=== PATIENT | female | born 1960 | race Caucasian/White ===

== ENCOUNTER 2016-12-09 10:07 | Outpatient (CLI) ==
[2014-02-15 11:26] VITALS: BMI 39.4
--- NOTE | 2016-12-09 12:08 | MAMMO ---
EXAM: Bilateral digital diagnostic mammogram (2-D and 3-D) History: Right nipple discharge which is clear. Comparison: Bilateral mammogram 08/01/2014 Findings: MLO and CC views of bilateral breasts demonstrate scattered fibroglandular breast parenchy ma. CAD was reviewed by the radiologist. Tomosynthesis was performed. Area of architectural distor tion seen within the upper-outer quadrant of the right breast. No suspicious calcifications. Impression: 1. Indeterminate area of architectural distortion in the upper outer quadrant of the right breast. Recommend further evaluation with ultrasound. 2. No mammographic correlate for the right nipple discharge. Recommend further evaluation with ultr asound. BIRADS 0
--- NOTE | 2016-12-09 16:13 | US ---
EXAM: Right breast ultrasound. History: Right breast nipple discharge and architectural distortion within the right breast. Comparison: Bilateral mammogram 12/09/2016 Technique: Multiple sonographic images through the right breast were obtained. Color duplex Doppler was used to interrogate vascular flow. Findings: No sonographic abnormalities identified to correlate with the clear nipple discharge withi n the right breast. There is an incidental 0.5 cm simple cyst at 10 o'clock. No ultrasound findings to correlate with the architectural distortion. Impression: 1. Indeterminate architectural distortion within the right breast seen on mammography with no sonogra phic correlate. Recommend further evaluation with breast MRI. BIRADS 0
== END 2016-12-09 10:08 | disposition home or self-care (01) ==
LOC: RAD 10:07
PROVIDERS: ATTEND Physician Assistant Medical
DX: Z12.31 Encounter for screening mammogram for malignant neoplasm of breast (principal)

== ENCOUNTER 2018-06-06 11:13 | Outpatient (CLI) ==
[2014-02-15 11:26] VITALS: BMI 39.4
== END 2018-06-06 11:14 | disposition home or self-care (01) ==
LOC: RAD 11:13
PROVIDERS: ATTEND Physician Assistant
DX: Z12.31 Encounter for screening mammogram for malignant neoplasm of breast (principal)

== ENCOUNTER 2018-06-29 08:58 | Outpatient (CLI) ==
[2014-02-15 11:26] VITALS: BMI 39.4
--- NOTE | 2018-06-29 09:28 | MAMMO ---
EXAM: Right digital diagnostic mammogram (2-D and 3-D) History: Right breast architectural distortion. Comparison: Bilateral mammogram 06/06/2018 Findings: Right breast density is scattered. Additional spot compression views of the right breast confirm the upper-outer quadrant architectural distortion. No suspicious microcalcifications. Impression: Indeterminate architectural distortion within the upper-outer quadrant of the right [address]. Recommend further evaluation with right breast ultrasound. BIRADS 0, incomplete. Further evaluation needed.
--- NOTE | 2018-06-29 09:47 | US ---
EXAM: Right breast ultrasound. History: Right breast architectural distortion. Comparison: Right diagnostic mammogram 06/29/2018 Technique: Multiple sonographic images through the right breast were obtained. Color duplex Doppler was used to interrogate vascular flow. Findings: At 10 o'clock 13 cm from nipple there is a 0.7 cm x 0.4 cm x 0.7 cm mass with irregular margins and p osterior acoustic shadowing. This correlates with mammography Impression: 10 o'clock right breast mass is suspicious for malignancy. Recommend further evaluation with ultrasound guided breast biopsy BIRADS 4, suspicious abnormality
== END 2018-06-29 08:59 | disposition home or self-care (01) ==
LOC: RAD 08:58
PROVIDERS: ATTEND Nurse Practitioner Family
DX: R92.8 Other abnormal and inconclusive findings on diagnostic imaging of breast (principal)

== ENCOUNTER 2018-12-13 11:18 | Observation (INO) ==
[2018-12-13] MEDS ORDERED: SODIUM CHLORIDE 1,000 ML IV STA (15:29)
[2018-12-13] MEDS ORDERED: ZOFRAN 4 MG/2 ML IVP STA ×2 (15:29→19:33)
--- NOTE | 2018-12-13 15:29 | ED.PDOC ---
General ED Provider: Dr. YOLANDA DOTSON Chief Complaint: Nausea/Vomiting Stated Complaint: NAUSEA, VOMITING AND DIARRHEA ONSET 2-3 WEEKS HAVING DRY HEAVES Time Seen by Physician: 15:28 Mode of Arrival: Walk-In Information Source: Patient Primary Care Provider: THOMAS CARR Referred to ED by: PCP Does patient meet sepsis criteria?: No If yes, has appropriate treatment been initiated?: No System Inflammatory Response Syndrome: Not Applicable Sepsis Protocol: For patient's 13 years and over: Temp is 96.8 and below OR 101 and greater Pulse >90 BPM Resp >20/minute Acutely Altered Mental Status Are patient's symptoms suggestive of a new infection, such as: -Pneumonia -Skin, Soft Tissue -Endocarditis -UTI -Bone, Joint Infection -Implantable Device -Acute Abdominal Infection -Wound Infection -Meningitis -Blood Stream Catheter Infection -Unknown [facility] Social History (Updated 12/13/18 @ 14:39 by MARCE MONTOYA RN) Do you feel safe at home: Yes Smoking and tobacco status: Former smoker How long ago did patient quit smokin Alcohol intake: never Substance use type: does not use Course Course Vital Signs: Temp Pulse Resp BP Pulse Ox 12/13/18 14:49 77 20 151/87 H 96 12/13/18 11:19 98.4 F 86 18 163/108 H 96 Discharge Plan Discharge Prescriptions: No Action topiramate [Topamax] 100 MG tablet 50 mg PO BID RF: 0 lisinopril [Zestril] 20 MG tablet 40 mg PO QAM RF: 0 diazepam 5 MG tablet 10 mg PO TID RF: 0 levothyroxine [Synthroid] 137 mcg Tablet 137 mcg PO DAILY RF: 0 calcium carbonate-vitamin D3 [Calcium 500 + D (D3)] 500 mg(1,250mg) -125 unit Tablet 1 tab DAILY RF: 0 Cardizem LA 120 mg Tablet Extended Release 24 Hr 120 mg PO DAILY RF: 0 Latuda 40 mg Tablet 40 mg PO DAILY RF: 0 sodium bicarbonate 650 mg Tablet 1,300 mg PO TID RF: 0 ondansetron HCl [Zofran] 8 mg Tablet 8 mg PO Q8H PRN (Reason: Nausea) RF: 0 ED Provider: YOLANDA DOTSON Condition: Stable
[2018-12-13] MEDS ORDERED: SODIUM CHLORIDE 1,000 ML IV ONE (17:03)
--- NOTE | 2018-12-13 17:52 | CT ---
EXAM: CT scan of the abdomen and pelvis without contrast HISTORY: Nausea vomiting diarrhea for 3 weeks TECHNIQUE: Helical imaging of the abdomen and pelvis was performed without contrast. 3 mm thin axia l images and coronal and sagittal reconstructions were provided for addition. Comparison 01/31/2018. FINDINGS: The patient has had previous cholecystectomy. The pancreas, adrenal glands and kidneys ap pear normal. The proximal ureters are normal size. The small and large bowel loops are normal calib er. There is no free air. The helical images obtained through the pelvis demonstrate a normal appearance of the rectum, urinary bladder. There has been previous hysterectomy. Diverticula are seen within the sigmoid colon witho ut acute inflammation. Lung bases are clear. No lytic or blastic lesions are seen within the osseou s structures. IMPRESSION: There is no bowel obstruction or acute inflammatory change seen within the abdomen and p willie. There is no ureteral obstruction. Diverticular disease of the sigmoid colon without acute inflammation. Previous cholecystectomy and previous hysterectomy.
[2018-12-13] MEDS ORDERED: PHENERGAN 25 MG/ML VIAL IM STA (18:12)
[2018-12-13] MEDS ORDERED: PEPCID IVP STA (19:33)
[2018-12-13] MEDS ORDERED: PHENERGAN 25 MG/ML VIAL 25 MG in SODIUM CHLORIDE 100 ML IV PRN (19:47)
--- NOTE | 2018-12-13 20:30 | DI ---
Exam: Two-view chest x-ray. Date: 12/13/2018. Comparison: 01/31/2018. HISTORY: Nausea and vomiting. FINDINGS: No acute osseous abnormalities are seen. The lungs are clear with calcified granulomas. Cardiac silhouette and pulmonary vasculature are normal. Impression: No acute intrathoracic findings. Old granulomatous disease.
[2018-12-13 21:25] VITALS: BMI 45.4
[2018-12-14] MEDS: LOVENOX SUBCUT SCH ×2 (01:18→09:18)
[2018-12-14] MEDS: SODIUM BICARBONATE PO SCH ×3 (01:19→15:11)
[2018-12-14] MEDS: TOPAMAX PO SCH ×2 (01:19→09:17)
[2018-12-14] MEDS: VALIUM PO SCH ×2 (01:19→09:18)
[2018-12-14] MEDS: ZOFRAN 4 MG/2 ML IVP PRN ×2 (01:58→08:27)
[2018-12-14] MEDS ORDERED: SYNTHROID PO SCH ×2 (07:30)
[2018-12-14] MEDS ORDERED: ZESTRIL PO SCH ×2 (09:00)
[2018-12-14] MEDS ORDERED: CARDIZEM CD PO SCH (09:00)
[2018-12-14] MEDS ORDERED: LURASIDONE 40 MG PO SCH ×2 (09:00→17:00)
[2018-12-14] MEDS ORDERED: PHENERGAN 25 MG/ML VIAL ONE (12:35)
[2018-12-14] MEDS ORDERED: SODIUM CHLORIDE 100 ML IV ONE (12:38)
--- NOTE | 2018-12-14 13:57 | DS ---
DATE OF SERVICE: 12/14/18 FINAL DIAGNOSIS: 1. Acute gastroenteritis 2. Chronic kidney disease 3. Nonalcoholic steatohepatitis 4. Morbid obesity 5. Depression 6. Hypothyroidism 7. Hypertension DISCHARGE INSTRUCTIONS: Discharge the patient home. The patient is to see primary care Emelyn Jennings in a couple of days. The appointment is going to be made by [employer]. An appointment is scheduled for December 15, 2018 at 8:30am with Emelyn Jennings at [facility] located on [address] MEDICATIONS AT DISCHARGE: Topamax Diazepam Lisinopril Diltazem Calcium carbonate Levothyroxine Latuda Sodium Bicarb DIET INSTRUCTIONS: Clear liquid and advance as tolerated. Avoid milk, milk products ACTIVITY: Gradually resume as tolerated SMOKING: Former Smoker DISEASE SPECIFIC EDUCATION: Appointments Diet Gastroenteritis HOSPITAL COURSE: 57 year old white female was kept in the emergency room. At that time she had come with nausea, vomiting and diarrhea. The patient did not have much diarrhea or vomiting while she was in the emergency room for several hours. She persisted to have nausea so she was hospitalized. The patient did not have any dry heaves. She was not throwing up at all. She was extremely comfortable, talking normally. Her oral intake was not that great but she had a lot of fluid intake. The patient entire physical examination was negative. A CT scan of the abdomen was negative. Chest x-ray was normal. Her creatinine was 1.5 which has been steady like that with BUN of 12, Potassium 3.6. Vitals were stable with temperature of 97.7 and pulse 50, respiratory rate 18, blood pressure 128/70 and pulse ox 97%. The patient was discharged home to be followed as an outpatient. The patient says that usually Zofran has stopped working, wants Phenergan for nausea. Overall condition is stable. In fact the patient's diarrhea colitis part had already resolved by the time she came to the emergency room. The patient is strongly advised to avoid nonsteroidal anti-inflammatory. CONDITION: Stable. TIME SPENT: More than 60 minutes. LENORA
--- NOTE | 2018-12-14 14:03 | PN ---
The patient's coding 24 hour admission History and Physical and Discharge Summary for this MTDD
[2018-12-14 14:52] VITALS: BP 118/68; TEMP 98
--- NOTE | 2018-12-15 09:16 | HP ---
DATE OF SERVICE: 12/13/18 HISTORY OF PRESENT ILLNESS: 57-year-old white female seen in the emergency room by ER attending with history of nausea and vomiting for a couple of weeks. The patient was kept in the emergency room for several hours where she had continuous nausea but no vomiting. CT scan of the abdomen and chest x-ray were all negative. She continued to have nausea in spite of getting multiple doses of Zofran which was given to the patient at that time. PAST MEDICAL HISTORY: Major depression Hypertension Morbid obesity Hypothyroidism Chronic kidney disease MITCHELL (nonalcoholic steatosis hepatitis) REVIEW OF SYSTEMS: CONSTITUTIONAL: Fatigue. No weakness. No night sweats. No malaise, lethargy. No fever or chills. HEENT: Eyes: No visual changes. No eye pain. No eye discharge. ENT: No runny nose. No epistaxis. No sinus pain. No sore throat. No odynophagia. No ear pain. No congestion. RESPIRATORY: No cough, no congestion. No hemoptysis. No shortness of breath. CARDIOVASCULAR: No angina symptoms. No CHF symptoms. No atypical chest pain for CAD. No palpitations. No PND. No orthopnea. GASTROINTESTINAL: Continuous nausea off and on. Vomiting has subsided for the past 24 hours. Diarrhea has subsided for 24 hours. No abdominal pain. No constipation. No hematemesis. No hematochezia. GENITOURINARY: No urgency. No frequency. No dysuria. No hematuria. No obstructive symptoms. No discharge. No pain. No significant abnormal bleeding. MUSCULOSKELETAL: No musculoskeletal pain. No joint swelling. No arthritis. NEUROLOGICAL: No headache. No neck pain. No syncope. No seizures. No dizziness. PSYCHIATRIC: Not anxious. No depression. No suicidal thoughts. No homicidal thoughts. SKIN: No rash. No lesions. No wounds. ENDOCRINE: No unexplained weight loss. No weight gain. HEMATOLOGIC/LYMPHATIC: No anemia. No purpura. No petechiae. No prolonged or excessive bleeding. No palpable lymph nodes. PERSONAL/FAMILY/SOCIAL HISTORY: The patient is smoker, lives with . She does all activities of daily living. She is disabled from depression. She is morbidly obese with BMI of 45. MEDICATIONS: Topamax 50 mg p.o. b.i.d. Diazepam 10 mg p.o. t.i.d. Zestril 40 mg p.o. q.a.m. Calcium Carbonate - Vitamin D3 one tablet daily Latuda 40 mg p.o. daily Synthroid 137 mcg p.o. daily Diltiazem (Cardizem LA) 120 mg p.o. daily Sodium Bicarbonate 1,300 mg p.o. t.i.d. Ondansetron (Zofran) 8 mg p.o. q.8h p.r.n. ALLERGIES: AMOXICILLIN TRIHYDRATE, POTASSIUM CLAVULANATE (FROM AUGMENTIN), OMEPRAZOLE (FROM PRILOSEC), MORPHINE PHYSICAL EXAMINATION: VITAL SIGNS: Temperature 98.4, pulse 86, respiratory rate 18, blood pressure 150/87. HEENT: Head normocephalic, atraumatic. Eyes: Extraocular muscles are intact. Pupils are equal, round and reactive to light and accommodation. Ears: No lesions. Nose appeared normal. Throat: No exudate or erythema. NECK: Supple. No JVD, no carotid bruit. No lymphadenopathy or thyromegaly. LUNGS: Decreased breath sounds but clear to auscultation. Percussion note normal. Chest symmetrical. HEART: S1, S2, no S3. No murmur. No cyanosis or clubbing. No ascites. Pulses: Dorsalis pedis and posterior tibial pulses +1 to +2 bilaterally. ABDOMEN: Protuberant. Soft. Nontender. Bowel sounds active. No CVA tenderness. No mass felt. EXTREMITIES: No edema. Full range of motion of all extremities, equal. NEUROLOGIC: No focal deficit. Cranial nerves II through XII are grossly intact. No headache, no double vision or headache. SKIN: Not dry. Intact. Turgor - normal. LYMPHATIC: No palpable lymph nodes/no lymphedema. MUSCULOSKELETAL: Normal joints with no swelling. Muscle tone is normal. ASSESSMENT: 1. ACUTE GASTROENTERITIS SEEMS TO BE RESOLVING. PLAN: 1. The patient needs to be admitted to observation. I had discussed the case with the emergency room physician and he insisted on admitting the patient because of continuous nausea. 2. Continue to give Zofran. 3. Monitor electrolytes. 4. Daily CBC and CMP. 5. The patient's cardiovascular status is stable. 6. Blood pressure will be observed. TIME SPENT: More than 70 minutes. [facility]
== END 2018-12-14 15:03 | disposition home or self-care (01) ==
LOC: ED 11:18 → MEDSURG B 11:18
PROVIDERS: ADMIT Internal Medicine; ATTEND Internal Medicine
DX: R19.7 Diarrhea, unspecified; K52.9 Noninfective gastroenteritis and colitis, unspecified; K75.81 Nonalcoholic steatohepatitis (NASH); N18.9 Chronic kidney disease, unspecified; E66.01 Morbid (severe) obesity due to excess calories; E03.9 Hypothyroidism, unspecified; I10 Essential (primary) hypertension; R11.2 Nausea with vomiting, unspecified; F32.9 Major depressive disorder, single episode, unspecified